=== PATIENT | male | born 1990 | race Two or more races ===

== ENCOUNTER 2024-03-22 10:23 | Emergency (ER) | payer OTHER ==
[~2024-03-22] VITALS: Ht 177.8 cm; Wt 104.5 kg
[2024-03-22] MEDS ORDERED: CLIN1CAP70 PO (11:18)
[2024-03-22] MEDS ORDERED: IBUP-1456 PO (11:18)
--- NOTE | 2024-03-22 11:20 | ED.PDOC ---
History of Present Illness(SKN HPI Comments A 33 YEAR OLD MALE PRESENTS TO THE ED WITH CHIEF COMPLAINT OF DENTAL ABSCESS. PATIENT REPORTS THAT HE HAS HAD AN ABSCESS TO HIS LEFT LOWER MOLAR FOR THE PAST 2 WEEKS. PATIENT RELAYS THAT HIS DENTIST HAD SEEN HIM A WEEK AGO AND PLACED HIM ON AZITHROMYCIN, HOWEVER, THE SWELLING AND PAIN HAS WORSENED. PATIENT STATES HE CALLED HIS DENTIST AGAIN AND WAS ADVISED TO COME TO THE ED FOR FURTHER TREATMENT AND FOLLOW UP WITH THEIR OFFICE ON 03/27/23. PATIENT DENIES ANY DISCHARGE, BLEEDING, FEVER, CHILLS, OR N/V. Chief Complaint: Abscess Time Seen by MD: 11:15 Primary Care Provider: MEGAN History of Present Illness: Nurses Notes, Medications, Allergies Home Meds Active Scripts Ibuprofen (Ibuprofen) 800 Mg Tab, 1 TAB PO TID, #30 TAB Prov:JEOVANY GOSS 03/22/24 Clindamycin Hcl (Clindamycin Hcl) 300 Mg Cap, 300 MG PO QID for 10 Days, #40 CAP Prov:JEOVANY GOSS 03/22/24 Information Source: Patient Mode of Arrival: Ambulatory Severity: Moderate Timing: Weeks Duration: Since onset Prehospital treatment: None Location: Mouth Mechanism: Spontaneous Onset Object: None Condition of Object: None Retained Foreign Body: No Wound Type: Abscess Immunization Status of Animal: NA Tetanus: Unknown History of: None Associated Signs and Symptoms: Swelling, Pain Past Medical History PAST MEDICAL HISTORY: Denies Surgical History: Denies all surgeries Family History Family History: Reviewed,noncontributory to illness Social History Smoker: Non-Smoker Alcohol: Denies ETOH Use Drugs: Denies Drug Use Lives In: Home Constitutional: denies: chills, diaphoresis, fatigue, fever, malaise, sweats, weakness, others EENTM: reports: mouth pain (LEFT LOWER TOOTH PAIN AND GUM SWELLING. ), others (DENTAL PAIN AND SWELLING LEFT LOWER MOUTH); denies: blurred vision, double vision, ear bleeding, ear discharge, ear drainage, ear pain, ear ringing, eye pain, eye redness, hearing loss, mouth swelling, nasal discharge, nose bleeding, nose congestion, nose pain, photophobia, tearing, throat pain, throat swelling, voice changes Respiratory: denies: cough, hemoptysis, orthopnea, SOB at rest, shortness of breath, SOB with excertion, stridor, wheezing, others Cardiovascular: denies: chest pain, dizzy spells, diaphoresis, Dyspnea on exertion, edema, irregular heart beat, left arm pain, lightheadedness, palpitations, PND, syncope, others Gastrointestinal: denies: abdomen distended, abdominal pain, blood streaked bowels, constipated, diarrhea, dysphagia, difficulty swallowing, hematemesis, melena, nausea, poor appetite, poor fluid intake, rectal bleeding, rectal pain, vomiting, others Genitourinary: denies: burning, dysuria, flank pain, frequency, hematuria, incontinence, penile discharge, penile sore, pain, testicle pain, testicle swelling, urgency, others Neurological: denies: dizziness, fainting, headache, left sided numbness, left sided weakness, numbness, paresthesia, pre-existing deficit, right sided numbness, right sided weakness, seizure, speech problems, tingling, tremors, weakness, others Musculoskeletal: denies: back pain, gout, joint pain, joint swelling, muscle pain, muscle stiffness, neck pain, others Integumetry: denies: bruises, change in color, change in hair/nails, dryness, laceration, lesions, lumps, rash, wounds, others Allergic/Immunocompromised: denies: Difficulty Healing, Frequent Infections, Hives, Itching, others Hematologic/Lymphatic: denies: anemia, blood clots, easy bleeding, easy bruising, swollen glands, others Endocrine: denies: excessive hunger, excessive sweating, excessive thirst, excessive urination, flushing, intolerance to cold, intolerance to heat, unexplained weight gain, unexplained weight loss, others Psychiatric: denies: anxiety, bipolar disorder, depression, hopeless, panic disorder, schizophrenia, sleepless, suicidal, others All Other Systems: Reviewed and Negative Physical Exam General Appearance: No Apparent Distress, Normal HEENT: Normal ENT Inspection, PERRL/EOMI, Pharynx Normal, TMs Normal, Other (ER YTHEMA AND SWELLING ON LEFT LOWER GUM AROUND TOOTH, DENTAL INFECTION, MILD LEFT JAW SITE SWELLING, NO SKIN HARDNESS AND REDNESS. ) Neck: Full Range of Motion, Non-Tender, Normal, Normal Inspection Respiratory: Chest Non-Tender, Lungs Clear, No Accessory Muscle Use, No Respiratory Distress, Normal Breath Sounds Cardiovascular: No Edema, No JVD, No Murmur, No Gallop, Normal Peripheral Pulses, Regular Rate/Rhythm Breast Exam: Deferred Gastrointestinal: No Organomegaly, Non Tender, No Pulsatile Mass, Normal Bowel Sounds, Soft Genitalia: Deferred Pelvic: Deferred Rectal: Deferred Extremities: No calf tenderness, Normal capillary refill, Normal inspection, Normal range of motion, Non-tender, No pedal edema Musculoskeletal : Apperance: Normal Neurologic: Alert, 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 Was a procedure done?: No Differential Diagnosis (INTG) Differential Diagnosis: Cellulitis Differential Diagnosis: Abscess, Other (DENTAL INFECTION ) X-Ray, Labs, Meds, VS Vital Signs Date Time Temp Pulse Resp B/P (MAP) Pulse Ox O2 Delivery O2 Flow Rate FiO2 03/22/24 10:39 97.7 91 16 141/94 (110) 96 X-Ray, Labs, Meds, VS Comment - I reviewed the following notes from patient's past medical encounters: NA - The following tests were ordered, and results were reviewed by me: NA - Additional information was gathered from interviewing the following independent Historian: NA - I reviewed and agreed with the following test results read by other provider: NA - I discussed treatments and results with medical personnel. TREATMENT: ROCEPHIN 1G IM, IBUPROFEN 800MG PO. Time of 1ST Reevaluation: 11:40 Reevaluation 1ST: Improved Patient Education/Counseling: Diagnosis, Treatment, Need For Follow Up Family Education/Counseling: Diagnosis, Treatment, No Family Present Medical Screening: No EMC Exist At This Time Departure 1 Departure Time of Disposition: 11:40 Impression: Primary Impression: Infected dental caries Disposition: HOME / SELF CARE / HOMELESS Condition: Stable Additional Instructions: F/U PCP IN 2 DAYS RECHECK. IF CONDITION BECOME WORSE, RETURN TO ED [facility]. e-Prescriptions Ibuprofen (Ibuprofen) 800 Mg Tab 1 TAB PO TID, #30 TAB Prov: JEOVANY GOSS 03/22/24 Clindamycin Hcl (Clindamycin Hcl) 300 Mg Cap 300 MG PO QID for 10 Days, #40 CAP Prov: JEOVANY GOSS 03/22/24 Discharged With: Self Critical Care Note Critical Care Time?: No Stability Stability form required: No Heart Score Heart Score: Heart Score Response (Comments) Value History N/A 0 EKG N/A 0 Age N/A 0 Risk Factors N/A 0 Troponin N/A 0 Total 0 I personally scribed for JEOVANY GOSS ([email or web address]) on 03/22/24 at 11:20. Electronically submitted by Edvin Lopez ([email or web address]). JEOVANY GOSS Mar 22, 2024 11:20
[2024-03-22] MEDS: cefTRIAXone SOD 1,000 MG VL IM ONE (11:38)
[2024-03-22] MEDS: IBUPROFEN 800 MG TAB PO ONE (11:38)
[2024-03-22 11:56] VITALS: BP 146/86; PULSE 85; RESP 18; TEMP 98.5; O2SAT 98
== END 2024-03-22 11:57 | disposition home or self-care (01) ==
LOC: ER 10:23
DX: K02.9 Dental caries, unspecified (principal); K04.7 Periapical abscess without sinus; Z79.899 Other long term (current) drug therapy
CPT/HCPCS: 96372; 99283; J0696